=== PATIENT | female | born 1970 | race African-American/Black ===

== ENCOUNTER 2016-07-05 22:40 | Emergency (ER) | payer SELFPAY ==
[~2016-07-05] VITALS: Ht 157.5 cm; Wt 119.3 kg
[~2016-07-05 22:40] MED LIST: AC500T PO; ASPI1TAB22 PO; HYDR-3811 PO; IBP200T PO; IBP800T PO; LISI2.5T PO; LSNP20T PO; NAPR220C11 PO; NF-TORA10 PO
[2016-07-05] MEDS ORDERED: HYDROmorphone 1 MG/ML (DILAUDID) SYRINGE IV PRN (23:20)
[2016-07-05] MEDS ORDERED: HYDROmorphone 1 MG/ML (DILAUDID) SYRINGE IV ONE (23:20)
[2016-07-05] MEDS ORDERED: ONDANSETRON 2 MG/ML (Z0FRAN) 2 ML VIAL IV ONE (23:20)
[2016-07-05] MEDS ORDERED: SODIUM CHLORIDE FLUSH 3 ML SYR IV PRN (23:20)
[2016-07-06] LABS: BASOPHILS % (AUTO) 0 % (0-2); EOSINOPHILS # (AUTO) 0.2 10^3uL; EOSINOPHILS % (AUTO) 3 % (0-4); LYMPHOCYTES # (AUTO) 2.2 X10^3; MEAN CORPUSCULAR VOLUME 82 FL (80-100); MEAN PLATELET VOLUME 9.8 FL (6.0-9.5); MONOCYTES # (AUTO) 0.5 X10^3; MONOCYTES % (AUTO) 7 % (3-11); NEUTROPHILS # (AUTO) 4.2 X10^3; NEUTROPHILS % (AUTO) 59 % (51-67); PLATELET COUNT 289 10^3uL (150-450)
[2016-07-06] MEDS: SODIUM CHLORIDE FLUSH 10 ML SYR IV PRN ×2 (00:01→00:36)
[2016-07-06 00:02] LABS: MEAN CORPUSCULAR HGB CONC 36.8 g/dL (31.0-37.0)
[2016-07-06 00:08] LABS: ANION GAP 13.7 MEQ/L (3-15)
[2016-07-06] MEDS ORDERED: ORPHENADRINE 60 MG/2 ML (NORFLEX) AMP IV ONE (00:30)
[2016-07-06] MEDS ORDERED: ORPHENADRINE 60 MG/2 ML (NORFLEX) AMP ONE (00:34)
[2016-07-06] MEDS ORDERED: CYCL10TA45 PO (00:59)
--- NOTE | 2016-07-06 01:10 | NUR ---
Patient resting with eyes closed sitting up in bed.
[2016-07-06 01:48] VITALS: BP 169/102
--- NOTE | 2016-07-06 01:51 | NUR ---
Along with education provided, recommended to patient that she takes her Lisinopril daily as prescribed as she has admitted that she has not been taking it regularly. She verbalized understanding and reported that she would follow as advised.
--- NOTE | 2016-07-06 08:19 | Diagnostic Imaging Report ---
PROCEDURE: CT head without contrast. TECHNIQUE: Multiple contiguous axial images were obtained through the brain without the use of intravenous contrast. INDICATION: Headache. The ventricles are normal in size, shape, and position. There are no masses or hemorrhages. There are no extra-axial fluid collections. There is membrane thickening in the ethmoid air cells. IMPRESSION: Possible ethmoid sinusitis. No acute intracranial abnormalities. I agree with preliminary interpretation. Dictated by: Dictated on workstation # [id number]
== END 2016-07-06 01:54 | disposition home or self-care (01) ==
LOC: ED 22:41
DX: M54.2 Cervicalgia (principal); R51 Headache; F17.210 Nicotine dependence, cigarettes, uncomplicated
CPT/HCPCS: 36415; 70450; 80048; 85025; 85379; 85610; 96361; 96374; 96375; 99284; J1170; J2360; J2405; J7030; 99283

== ENCOUNTER 2016-07-20 19:27 | Emergency (ER) | payer SELFPAY ==
[~2016-07-20] VITALS: Ht 157.5 cm; Wt 122.6 kg
[~2016-07-20 19:27] MED LIST changes: +CYCL10TA45 PO
[2016-07-20] MEDS ORDERED: HYDROmorphone 1 MG/ML (DILAUDID) SYRINGE IM ONE (20:10)
[2016-07-20] MEDS ORDERED: ORPHENADRINE 60 MG/2 ML (NORFLEX) AMP IM ONE (20:10)
[2016-07-20] MEDS ORDERED: PROMETHAZINE 25 MG/ML (PHENERGAN) 1 ML VIAL IM ONE (20:10)
[2016-07-20] MEDS ORDERED: HYDROmorphone 2 MG/ML (DILAUDID) 1 ML SYRINGE IM ONE (20:10)
[2016-07-20] MEDS ORDERED: HYDROmorphone 2 MG/ML (DILAUDID) 1 ML SYRINGE ONE (20:13)
--- NOTE | 2016-07-20 20:34 | NUR ---
phenergan, dilaudid and norflex were fiven im so no start stop times for IV. pt d/c home before meds effective per dr whitlock ok. pt said she didn't want to be "out of it" when gets home.
[2016-07-20 20:36] VITALS: BP 168/102
== END 2016-07-20 20:37 | disposition home or self-care (01) ==
LOC: ED 19:29
DX: M54.2 Cervicalgia (principal); R51 Headache
CPT/HCPCS: 96372; 99282; J1170; J2360; J2550

== ENCOUNTER 2016-08-01 17:12 | Emergency (ER) | payer SELFPAY ==
[~2016-08-01] VITALS: Ht 157.5 cm; Wt 120.0 kg
[2016-08-01] MEDS ORDERED: ONDANSETRON 4 MG (ZOFRAN) ORAL DISSOLVE TAB PO ONE (17:40)
[2016-08-01] MEDS ORDERED: morphine INJ 10 MG/ML 1 ML VIAL IM ONE (17:40)
[2016-08-01 17:59] VITALS: BP 159/95
== END 2016-08-01 18:03 | disposition home or self-care (01) ==
LOC: ED 17:13
DX: R51 Headache (principal)
CPT/HCPCS: 96372; 99282; J2270

== ENCOUNTER → 2016-08-27 | Outpatient (CLI) | payer OTHER | LOC: RT 08:34 | PROVIDERS: ATTEND Surgery | DX: Z02.71 Encounter for disability determination (principal) | CPT/HCPCS: 94060; 94640; 94729 ==

== ENCOUNTER 2016-09-16 18:52 | Emergency (ER) | payer OTHER ==
[~2016-09-16] VITALS: Ht 157.5 cm; Wt 121.6 kg
[2016-09-16] MEDS ORDERED: ED- ALBUTEROL HFA (VENTOLIN HFA) 8 GM INHALER IH ONE (21:05)
[2016-09-16] MEDS ORDERED: ED- HYDROcodone/ACETAMINOPHEN 5MG/325MG (NORCO) 6 TABLETS/BTL PO ONE (21:05)
[2016-09-16 21:33] VITALS: BP 169/98
== END 2016-09-16 21:41 | disposition home or self-care (01) ==
LOC: ED 18:53
DX: S60.012A Contusion of left thumb without damage to nail, initial encounter (principal); W20.8XXA Other cause of strike by thrown, projected or falling object, initial encounter; Y92.009 Unspecified place in unspecified non-institutional (private) residence as the place of occurrence of the external cause; J44.1 Chronic obstructive pulmonary disease with (acute) exacerbation; F17.210 Nicotine dependence, cigarettes, uncomplicated
CPT/HCPCS: 71020; 99282

== ENCOUNTER 2016-10-18 14:56 | Emergency (ER) | payer SELFPAY ==
[~2016-10-18] VITALS: Ht 152.4 cm; Wt 120.2 kg
--- OUTSIDE RECORDS SUMMARY | 2016-10-18 15:00 | XMS REPORT | Continuity of Care Document ---
Author Author [facility] Address Unknown Phone Unavailable Support Name Relationship Address Phone KAELYN WOLF Anastasiia DO Caregiver [address] [place] [address] ROSALINDA [place] [address] Insurance Providers Payer Name Policy Number Subscriber Name Relationship Disability Determination [id number] Isabel Dubois 16 Self / Same As Patient Advance Directives Directive Response Recorded Date/Time Advanced Directives No 09/16/16 8:21pm Chief Complaint and Reason for Visit Chief Complaint Injury Reason for Visit Finger injury Problems Active Problems Medical Problem Onset Date Status Chronic headache ~07/20/2016 Acute Chronic neck pain ~07/20/2016 Acute DVT (deep venous thrombosis) ~04/16/2016 Resolved Elevated blood pressure reading Unknown Chronic Finger injury Unknown Acute Headache ~08/01/2016 Chronic Left knee sprain ~02/07/2016 Resolved Plantar fasciitis of right foot 10/2015 Resolved Medications Current Home Medications Medication Dose Units Route Directions Days/Qty Instructions Start Date Acetaminophen (Tylenol) 500 Mg 4 Tab ORAL As Needed as needed for Pain 06/19/16 Lisinopril (Zestril) 20 Mg 40 Mg ORAL Daily 60 06/19/16 Past Home Medications Medication Directions Ordered Status Lisinopril 2.5 Mg Tablet, 2.5 Mg Oral Daily 10/14/15 Discontinued Ibuprofen (Motrin) 800 Mg Tablet, 800 Mg Oral As Needed 10/14/15 Discontinued Ketorolac Tromethamine 10 Mg Tab, 10 Mg Oral Three Times A Day 02/07/16 Discontinued Aspirin/Acetaminophen/Caffeine 1 Each Tablet, 1 Each Oral As Needed 06/19/16 Discontinued Naproxen Sodium 220 Mg Capsule, 4 Tab Oral As Needed as needed for Pain 06/19 Discontinued Ibuprofen (Motrin) 200 Mg Tablet, 4 Tab Oral As Needed 06/19/16 Discontinued Hydrocodone Bit/Acetaminophen 1 Each Tablet, 1 Each Oral Every 4HRS for Pain 06/19/16 Discontinued Cyclobenzaprine Hcl 10 Mg Tablet, 10 Mg Oral Three Times A Day as needed for Spasms 07/06/16 Discontinued Social History Query Response Start Date Stop Date Smoking Status Heavy tobacco smoker 10+ Hospital Discharge Instructions No hospital discharge instructions. Plan of Care Discharge Date 09/16/16 9:41pm Disposition 01 HOME OR SELF-CARE Condition at Discharge Stable Instructions/Education Provided Albuterol Hydrocodone and Acetaminophen Chronic Obstructive Pulmonary Disease (COPD), Including Emphysema Contusion (DC) Prescriptions See Medication Section Additional Instructions/Education You have a contusion of your thumb. Your x- rays did not show any significant abnormality according to the ER doctor, but a radiologist will over-read them later and make sure nothing was missed. You are receiving a few pain pills to take over the next day, 1 every 6 hours as needed, and you may also take Motrin 800 mg 3 times a day. For your COPD, you are receiving an albuterol inhaler to take 2 puffs every 6 hours as needed for wheezing. The pain pills mentioned above contain hydrocodone, which will also help with your cough. You should wear a mask to protect against dust inhalation. You should find a doctor to manage further care for your COPD. Some of your test results may not be complete prior to your leaving the Emergency Department. The Emergency Department is not authorized to give test results over the phone. Please contact the doctor's office listed in this packet of information for your final results. Follow up with your primary care physician or return to the Emergency Department for worsening or worrisome symptoms. * Emergency Department phone number: [phone], x [phone] MEDICAL RECORD If you need copies of your X-rays, call [phone]. If you need copies of your medical record, including lab results, a signed authorization for release of records will be required. A telephone call for release of Health Information is not allowed. BILLING Billing can sometimes be confusing and frustrating. To help avoid confusion in the future, please take a moment to acquaint yourself with the billing parties for services. SERVICE BILLING LIBERTARIAN Emergency Room Services [facility] Physician Services [facility] X-rays [facility] Patients will receive bills for services from the appropriate provider. If you have any questions about your [facility] bill, our staff will be happy to assist you. Please call [phone], and ask for the billing department. THANK YOU for choosing [facility] as your emergency care provider! Care Plan and Goals ~~Discharge Care Plan~~ Problem: Contusion, pain to affected area, fall. Goal: Decreased contusion and pain to affected area. Instructions: Apply ice to area for 15-20 minutes every 3-4 hours. Elevate extremity above the level of the heart, if applicable. Splint area with pillow or blanket to any chest/abdomen injuries. Use incentive spirometry as directed. Take at least 10 deep breaths per hour. Take medication(s) as directed. Follow up with regular physician or specialist as directed. Exercise as tolerated or directed by physician. Functional Status No functional status results. Allergies, Adverse Reactions, Alerts Allergen Type Severity Reaction Status Last Updated Sulfamethoxazole Allergy Unknown Active 09/16/16 Trimethoprim Allergy Mild Nausea/Vomiting Active 09/16/16 Immunizations No immunization records. Vital Signs Acute Vital Signs Vital Response Date/Time Temperature (Fahrenheit) 98.6 09/16/2016 9:33pm Pulse 98 bpm 09/16/2016 9:33pm Respirations 18 09/16/2016 9:33pm Height 5 ft 2 in Weight 268 lb Body Mass Index 49.0 kg/m^2 Results No known relevant diagnostic tests, laboratory data and/or discharge summary. Procedures Procedure Status Date Provider(s) EVALUATION OF WHEEZING Completed 08/27/16 AIRWAY INHALATION TREATMENT Completed 08/27/16 CO/MEMBANE DIFFUSE CAPACITY Completed 08/27/16 Encounters Encounter Location Arrival/Admit Date Discharge/Depart Date Attending Provider Departed Emergency Room [facility] 09/16/16 6:53pm 09/16/16 9:41pm KAELYN WOLF DO Registered Clinic [facility] 08/27/16 8:34am CHEYANNE LITTLE MD Recent Diagnosis
[2016-10-18] MEDS ORDERED: ALBU8.5H6 IH (15:30)
[2016-10-18 15:36] VITALS: BP 140/101
== END 2016-10-18 16:20 | disposition home or self-care (01) ==
LOC: ED 14:57
DX: K52.9 Noninfective gastroenteritis and colitis, unspecified (principal); F17.210 Nicotine dependence, cigarettes, uncomplicated
CPT/HCPCS: 99281; 99282

== ENCOUNTER 2016-11-12 21:36 | Emergency (ER) | payer SELFPAY ==
[~2016-11-12] VITALS: Ht 157.5 cm; Wt 117.3 kg
[~2016-11-12 21:36] MED LIST changes: +ALBU8.5H6 IH
--- NOTE | 2016-11-12 21:52 | NUR ---
SUPPOSE TO BE OTHER MEDS BUT D/T NO INSURANCE ISN'T TAKING THEM
[2016-11-12] MEDS ORDERED: KETOROLAC 60 MG/2 ML (TORADOL) VIAL IM ONE ×2 (22:10→22:17)
[2016-11-12] MEDS ORDERED: PROMETHAZINE 25 MG/ML (PHENERGAN) 1 ML VIAL IM ONE (22:10)
[2016-11-12] MEDS ORDERED: ORPHENADRINE 60 MG/2 ML (NORFLEX) AMP IM ONE (22:10)
[2016-11-12] MEDS ORDERED: PROMETHAZINE 25 MG/ML (PHENERGAN) 1 ML VIAL ONE ×2 (22:16→22:17)
[2016-11-12] MEDS ORDERED: ORPHENADRINE 60 MG/2 ML (NORFLEX) AMP ONE (22:17)
--- NOTE | 2016-11-12 22:45 | NUR ---
ALL MEDS WERE GIVEN IM SO NO IV START / STOP TIMES
[2016-11-12 23:18] VITALS: BP 132/76
== END 2016-11-12 23:18 | disposition home or self-care (01) ==
LOC: ED 21:37
DX: G43.909 Migraine, unspecified, not intractable, without status migrainosus (principal); F17.210 Nicotine dependence, cigarettes, uncomplicated
CPT/HCPCS: 96372; 99283; J1885; J2360; J2550; 99282

== ENCOUNTER 2016-11-17 09:28 | Emergency (ER) | payer SELFPAY ==
[~2016-11-17] VITALS: Ht 157.5 cm; Wt 118.0 kg
--- OUTSIDE RECORDS SUMMARY | 2016-11-17 09:34 | XMS REPORT | Continuity Of Care Document ---
Author Author [facility] Organization [facility] Address [address] [place] [address] Phone Care Team Providers Care Logistics Analytics Manager Name Role Phone ADRIENNE VELASCO MD CP JAJA HUNTER, R AT [phone] TRANG HUNTER, C AD Results Lab Results Visit/Account #[id number] (February 26, 2014 2:01pm - February 27, 2014 12:38pm) Test Result Date/Time POCGL POCGL(70-105 MG/DL) 307 MG/DL February 26, 2014 11:55pm 182 MG/DL February 27, 2014 7:05am 62213-2: COMPLETE BLOOD COUNT WITH DIFF WHITE BLOOD COUNT(4.0-11.0 10E3/UL) 3.2 10E3/UL February 26, 2014 2:29pm RED BLOOD COUNT(4.00-5.20 10E6/UL) 4.70 10E6/UL February 26, 2014 2:29pm HEMOGLOBIN(12.0-16.0 G/DL) 14.6 G/DL February 26, 2014 2:29pm HEMATOCRIT(36.0-46.0 %) 40.2 % February 26, 2014 2:29pm 94604-8: MEAN CORPUSCULAR VOLUME(82.0-100.0 FL) 85.5 FL February 26, 2014 2:29pm 49377-8: MEAN CORPUSCULAR HEMOGLOBIN(26.0-34.0 PG) 31.1 PG February 26, 2014 2:29pm MEAN CORPUSCULAR HGB CONC(31.5-36.5 G/DL) 36.3 G/DL February 26, 2014 2:29pm RED CELL DISTRIBUTION WIDTH(11.5-14.5 %) 12.5 % February 26, 2014 2:29pm 777-3: PLATELET COUNT(150-450 10E3/UL) 262 10E3/UL February 26, 2014 2:29pm MEAN PLATELET VOLUME(8.2-12.4 FL) 9.8 FL February 26, 2014 2:29pm 770-8: NEUTROPHILS % (AUTO)(40-70 %) 45 % February 26, 2014 2:29pm LYMPHOCYTES % (AUTO)(15-45 %) 39 % February 26, 2014 2:29pm 5905-5: MONOCYTES % (AUTO)(2-10 %) 6 % February 26, 2014 2:29pm 713-8: EOSINOPHILS % (AUTO)(0-6 %) 8 % February 26, 2014 2:29pm 706-2: BASOPHILS % (AUTO)(0-1 %) 1 % February 26, 2014 2:29pm 65481-5: IMMATURE GRANS % (AUTO)(0-0 %) 0 % February 26, 2014 2:29pm NUCLEATED RBCS (AUTO)(0-0 %) 0 % February 26, 2014 2:29pm 751-8: NEUTROPHILS # (AUTO)(2.5-7.5 10E3/UL) 1.5 10E3/UL February 26, 2014 2:29pm 69079-2: LYMPHOCYTES # (AUTO)(1.0-4.0 10E3/UL) 1.2 10E3/UL February 26, 2014 2:29pm 742-7: MONOCYTES # (AUTO)(0.2-0.8 10E3/UL) 0.2 10E3/UL February 26, 2014 2:29pm 711-2: EOSINOPHILS # (AUTO)(0.0-0.4 10E3/UL) 0.3 10E3/UL February 26, 2014 2:29pm 704-7: BASOPHILS # (AUTO)(0.0-0.2 10E3/UL) 0.0 10E3/UL February 26, 2014 2:29pm IMMATURE GRANS # (AUTO)(0.0-0.0 10E3/UL) 0.0 10E3/UL February 26, 2014 2:29pm DIFF TYPE AUTOMATED February 26, 2014 2:29pm 48741-0: COMPLETE BLOOD COUNT WHITE BLOOD COUNT(4.0-11.0 10E3/UL) 4.5 10E3/UL February 27, 2014 2:16am RED BLOOD COUNT(4.00-5.20 10E6/UL) 4.47 10E6/UL February 27, 2014 2:16am HEMOGLOBIN(12.0-16.0 G/DL) 14.0 G/DL February 27, 2014 2:16am HEMATOCRIT(36.0-46.0 %) 38.6 % February 27, 2014 2:16am 02706-4: MEAN CORPUSCULAR VOLUME(82.0-100.0 FL) 86.4 FL February 27, 2014 2:16am 35963-4: MEAN CORPUSCULAR HEMOGLOBIN(26.0-34.0 PG) 31.3 PG February 27, 2014 2:16am MEAN CORPUSCULAR HGB CONC(31.5-36.5 G/DL) 36.3 G/DL February 27, 2014 2:16am RED CELL DISTRIBUTION WIDTH(11.5-14.5 %) 12.4 % February 27, 2014 2:16am 777-3: PLATELET COUNT(150-450 10E3/UL) 221 10E3/UL February 27, 2014 2:16am MEAN PLATELET VOLUME(8.2-12.4 FL) 9.6 FL February 27, 2014 2:16am NUCLEATED RBCS (AUTO)(0-0 %) 0 % February 27, 2014 2:16am 67811-5: PROTHROMBIN TIME WITH INR PROTHROMBIN TIME(12.1-14.0 SEC) 13.5 SEC February 26, 2014 2:36pm 58322-2: INR 1.05 Result Comments: INR reference interval applies to patients on anticoagulant therapy. Suggested INR therapeutic range for oral anticoagulant therapy: (Stabilized anticoagulated patients) Routine Therapy: 2.0 to 3.0 Recurrent Myocardial Infarction: 2.5 to 3.5 Mechanical Prosthetic Valves: 2.5 to 3.5 February 26, 2014 2:36pm BASIC METABOLIC PANEL 07267-1: GLUCOSE(70-110 MG/DL) 124 MG/DL February 26, 2014 2:46pm 205 MG/DL February 27, 2014 2:28am BLOOD UREA NITROGEN(6-20 MG/DL) 11 MG/DL February 26, 2014 2:46pm 15 MG/DL February 27, 2014 2:28am 92372-2: CREATININE(0.50-1.20 MG/DL) 1.26 MG/DL February 26, 2014 2:46pm 1.11 MG/DL February 27, 2014 2:28am 22423-6: EST GLOMERULAR FILTRATION RATE(Greater than or equal to 60) 46 Result Comments: If the patient is of -Sudanese descent/extraction multiply the eGFR value by 1.212 to obtain the actual eGFR. >=60 mg/dL Normal 30-59 mg/dL Moderate Kidney Disease 15-29 mg/dL Severe Kidney Disease <15 mg/dL Kidney Failure February 26, 2014 2:46pm 53 Result Comments: If the patient is of -Sudanese descent/extraction multiply the eGFR value by 1.212 to obtain the actual eGFR. >=60 mg/dL Normal 30-59 mg/dL Moderate Kidney Disease 15-29 mg/dL Severe Kidney Disease <15 mg/dL Kidney Failure February 27, 2014 2:28am BUN CREATININE RATIO(10.0-20.0 RATIO) 9.0 RATIO February 26, 2014 2:46pm 14.0 RATIO February 27, 2014 2:28am 06777-7: SODIUM(135-145 MMOL/L) 137 MMOL/L February 26, 2014 2:46pm 134 MMOL/L February 27, 2014 2:28am 78426-3: POTASSIUM(3.6-5.0 MMOL/L) 3.8 MMOL/L February 26, 2014 2:47pm 4.1 MMOL/L February 27, 2014 2:28am 74959-8: CHLORIDE(101-111 MMOL/L) 106 MMOL/L February 26, 2014 2:47pm 105 MMOL/L February 27, 2014 2:28am 8-9: CO2(21-31 MMOL/L) 26.0 MMOL/L February 26, 2014 2:47pm 22.0 MMOL/L February 27, 2014 2:28am 90266-6: ANION GAP(8-18) 9 February 26, 2014 2:47pm 11 February 27, 2014 2:28am OSMO CALCULATED(270.0-290.0) 274.6 February 26, 2014 2:47pm 275.0 February 27, 2014 2:28am CALCIUM(8.5-10.5 MG/DL) 8.8 MG/DL February 26, 2014 2:47pm 9.0 MG/DL February 27, 2014 2:28am TOTAL CPK TOTAL CPK(22-269 U/L) 95 U/L February 26, 2014 8:39pm 85 U/L February 27, 2014 2:40am CPK MB CPK MB(0.6-6.3 NG/ML) 0.9 NG/ML February 26, 2014 8:39pm 0.9 NG/ML February 27, 2014 2:40am 65601-0: [place] I 23897-9: CARDIAC TROPONIN I(0.01-0.04 NG/ML) 0.01 NG/ML Result Comments: REFERENCE RANGES: NEGATIVE < 0.04 NG/ML POSSIBLE MYCARDIAL INVOLVEMENT >/=0.04 NG/ML INTERPRET TROPONIN I RESULT IN LIGHT OF THE TOTAL CLINICAL PRESENTATION INCLUDING CLINICAL HISTORY. ANY CONDITION RESULTING IN MYOCARDIAL INJURY CAN POTENTIALLY ELEVATE TROPONIN I LEVELS ABOVE EXPECTED NORMAL RANGES. NOTE NEW REFERENCE RANGE February 26, 2014 3:00pm Less than 0.01 NG/ML Result Comments: REFERENCE RANGES: NEGATIVE < 0.04 NG/ML POSSIBLE MYCARDIAL INVOLVEMENT >/=0.04 NG/ML INTERPRET TROPONIN I RESULT IN LIGHT OF THE TOTAL CLINICAL PRESENTATION INCLUDING CLINICAL HISTORY. ANY CONDITION RESULTING IN MYOCARDIAL INJURY CAN POTENTIALLY ELEVATE TROPONIN I LEVELS ABOVE EXPECTED NORMAL RANGES. NOTE NEW REFERENCE RANGE February 26, 2014 8:39pm Less than 0.01 NG/ML Result Comments: REFERENCE RANGES: NEGATIVE < 0.04 NG/ML POSSIBLE MYCARDIAL INVOLVEMENT >/=0.04 NG/ML INTERPRET TROPONIN I RESULT IN LIGHT OF THE TOTAL CLINICAL PRESENTATION INCLUDING CLINICAL HISTORY. ANY CONDITION RESULTING IN MYOCARDIAL INJURY CAN POTENTIALLY ELEVATE TROPONIN I LEVELS ABOVE EXPECTED NORMAL RANGES. NOTE NEW REFERENCE RANGE February 27, 2014 2:40am 88624-1: BETA NATRIURETIC PEPTIDE 63969-6: BETA NATRIURETIC PEPTIDE(0-100 PG/ML) 42 PG/ML February 26, 2014 3:17pm Microbiology Results Visit/Account #[id number] (February 26, 2014 2:01pm - February 27, 2014 12:38pm) Procedure Result 6460-0: SPUTUM CULTURE 6460-0: SPUTUM CULTURE Result Instance On February 28, 2014 8:33am Source: SPUTUM Organism: [id number] ([id number]) ROUTINE RESPIRATORY OSCAR 86021-8: MRSA SCREEN FOR INFEC CONTROL 65398-1: MRSA SCREEN FOR INFEC CONTROL Result Instance On February 28, 2014 12:04pm Source: NARE Special Result Comments: No growth 648-6: SPUTUM GRAM STAIN 648-6: SPUTUM GRAM STAIN Result Instance On February 27, 2014 10:03am Source: SPUTUM Result Prompts: SPUTUM GRADE GRADE 6 (ADEQUATE): <25 WBC/LPF; <10 EPITHELIAL CELLS/LPF WBC/HPF 0-5 BACTERIA SEEN 1+ MIXED OSCAR Allergies and Adverse Reactions Allergies and Adverse Reactions Patient Unit Number: [id number] Agent Type Reaction Severity Status Date NO KNOWN ALLERGIES Drug Allergy Unknown Mild Active Unknown Date Problem List Problem List Visit/Account #[id number] (February 26, 2014 2:01pm - February 27, 2014 12:38pm) Acute Problems: Code/Condition Comments Documented Start Date Documented Resolved Date Code (s) COPD exacerbation ICD10: J44.1 Obstructive chronic bronchitis with exacerbation ICD9: 491.21 Obstructive chronic bronchitis with exacerbation SNOMED: 737530452 Obstructive chronic bronchitis with exacerbation COPD exacerbation ICD10: J44.1 Obstructive chronic bronchitis with exacerbation ICD9: 491.21 Obstructive chronic bronchitis with exacerbation SNOMED: 340990701 Obstructive chronic bronchitis with exacerbation Chest pain ICD10: R07.9 Chest pain ICD9: 786.50 Chest pain SNOMED: 28469069 Chest pain Plan of Care Plan Of Care Visit/Account #[id number] (February 26, 2014 2:01pm - February 27, 2014 12:38pm) Instructions/Comments: Chronic Obstructive Pulmonary Disease Vital Signs Vital Signs Visit/Account #[id number] (February 26, 2014 2:01pm - February 27, 2014 12:38pm) Label First Result Last Result 2710-2: O2% 95 % February 26, 2014 5:57pm 96 % February 27, 2014 9:29am 3141-9: Weight Measured 236 lbs February 26, 2014 1:58pm 107.865492 kg February 26, 2014 1:58pm 8310-5: Body Temperature 98.3 degF February 26, 2014 1:58pm 8310-5: Celsius Body Temperature 36.81395 Mandy February 26, 2014 5:57pm 35.06927 Mandy February 27, 2014 9:29am 8310-5: [facility] Body Temperature 96.4 [degF] February 27, 2014 9:29am 8480-6: BP Systolic 131/ mmHg February 26, 2014 1:58pm 123/77 mm[Hg] February 27, 2014 9:29am 8867-4: Heart Rate 86 /min February 26, 2014 1:58pm 71 /min February 27, 2014 9:29am 9279-1: Respiratory Rate 24 /min February 26, 2014 1:58pm 16 /min February 27, 2014 9:29am Unmapped Query Mnemonic (RESP.SAT) Saturation 97 % February 26, 2014 1:58pm 97 % February 26, 2014 1:58pm Unmapped Query Mnemonic (VS.BMI) Body Mass Index (BMI) 46 February 26, 2014 1:58pm 46 February 26, 2014 1:58pm Functional Status Functional Status No Functional Status Data Medications Home Medications Visit/Account #[id number] (February 26, 2014 2:01pm - February 27, 2014 12:38pm) Medication Route Sig/Schedule Precondition/Indication Comments/ Instructions Codes GLUCOPHAGE(MetFORMin HCL) 500 MG TAB ORAL BIDWM: WITH BREAKFAST & SUPPER GLUCOPHAGE (MetFORMin HCL) RxNorm: U411365 GLUCOPHAGE (MetFORMin HCL) RxNorm: P876250 GLUCOPHAGE (MetFORMin HCL) NDC: 87575345908 Lisinopril(LISINOPRIL) 20 MG TABLET ORAL DAILY: DAILY Lisinopril (LISINOPRIL) RxNorm: F912762 Lisinopril (LISINOPRIL) NDC: 38463351822 VENTOLIN 0.5% NEBS (use for MED REC)(ALBUTEROL SULF) 2.5 MG/0.5 ML INHALER INHALED 4XD: 4 TIMES DAILY VENTOLIN 0.5% NEBS (use for MED REC) (ALBUTEROL SULF) RxNorm: Z254001 VENTOLIN 0.5% NEBS (use for MED REC) (ALBUTEROL SULF) NDC: 51538728138 LEVAQUIN(LEVOFLOXACIN) 500 MG TAB ORAL DAILY@10 LEVAQUIN (LEVOFLOXACIN) RxNorm: J045590 LEVAQUIN (LEVOFLOXACIN) RxNorm: S803230 LEVAQUIN (LEVOFLOXACIN) NDC: 57112026886 ATROVENT 0.02% NEB(IPRATROPIUM BROMIDE) 0.5 MG/2.5 ML SOLUTION INHALED Q6H ATROVENT 0.02% NEB (IPRATROPIUM BROMIDE) RxNorm: H342685 ATROVENT 0.02% NEB (IPRATROPIUM BROMIDE) NDC: 93091061566 VENTOLIN 0.5% NEBS (use for MED REC)(ALBUTEROL SULF) 2.5 MG/0.5 ML INHALER INHALED Q6H VENTOLIN 0.5% NEBS (use for MED REC) (ALBUTEROL SULF) RxNorm: W395925 VENTOLIN 0.5% NEBS (use for MED REC) (ALBUTEROL SULF) NDC: 81824794443 VENTOLIN 0.5% NEBS (use for MED REC)(ALBUTEROL SULF) 2.5 MG/0.5 ML INHALER INHALED Q2H VENTOLIN 0.5% NEBS (use for MED REC) (ALBUTEROL SULF) RxNorm: A887375 VENTOLIN 0.5% NEBS (use for MED REC) (ALBUTEROL SULF) NDC: 54853528656 Aspirin Chew(ASPIRIN) 81 MG TAB ORAL DAILY: DAILY Aspirin Chew (ASPIRIN) NDC: 28128982206 DELTASONE(PredniSONE) 20 MG TAB ORAL DAILYB: DAILY AT [facility] Rx Instructions: Take 60 mg daily for 3 days then, take 40 mg daily for 3 days then, take 20 mg daily for 3 days then, take 10 mg daily until gone. DELTASONE (PredniSONE) RxNorm: D173579 DELTASONE (PredniSONE) NDC: 69940577394 TUSSIN COUGH & COLD CF LIQUID(GUAIFENESIN/D-METHORPHAN HB/PE) 118 ML LIQUID ORAL TID: 3 TIMES A DAY TUSSIN COUGH & COLD CF LIQUID (GUAIFENESIN/D-METHORPHAN HB/PE) RxNorm: D6466171 TUSSIN COUGH & COLD CF LIQUID (GUAIFENESIN/D-METHORPHAN HB/PE) NDC: 88232476557 Inpatient/Ordered Medications Visit/Account #[id number] (February 26, 2014 2:01pm - February 27, 2014 12:38pm) Medication Route Sig/Schedule Precondition/Indication Comments/ Instructions Codes VENTOLIN 0.5% NEB(ALBUTEROL SULF) 2.5 MG/0.5 ML INHALER Total Dose: 2.5 MG INHALED NOW: NOW Rx Order Comments: Order placed as verified: Dose Warnings differ from warehouse order picker Dose Warnings differ from warehouse order picker VENTOLIN 0.5% NEB (ALBUTEROL SULF) RxNorm: O740079 VENTOLIN 0.5% NEB (ALBUTEROL SULF) NDC: 62945638467 VENTOLIN 0.5% NEB(ALBUTEROL SULF) 2.5 MG/0.5 ML INHALER Total Dose: 5 ML INHALED NOW: NOW Rx Order Comments: Order placed as verified: Allergies/Duplicates/Interactions differ from warehouse order picker Dose Warnings differ from warehouse order picker VENTOLIN 0.5% NEB (ALBUTEROL SULF) RxNorm: I519083 VENTOLIN 0.5% NEB (ALBUTEROL SULF) NDC: 78096380026 Solu-MEDROL INJ(MethylPREDNISolone SOD SUCC) 125 MG/2 ML INJECTION Total Dose: 125 MG INTRAVEN NOW: NOW Rx Order Comments: Order placed as verified: Allergies/Duplicates/Interactions differ from warehouse order picker Dose Warnings differ from warehouse order picker Solu-MEDROL INJ (MethylPREDNISolone SOD SUCC) RxNorm: V890910 Solu-MEDROL INJ (MethylPREDNISolone SOD SUCC) RxNorm: Y297350 Solu-MEDROL INJ (MethylPREDNISolone SOD SUCC) NDC: 40875295098 ASPIRIN 324 MG TAB Total Dose: 324 MG ORAL NOW: NOW Rx Order Comments: Order placed as verified: Allergies/Duplicates/Interactions differ from warehouse order picker Dose Warnings differ from warehouse order picker Special Dose Instructions: CHEW (ASPIRIN) RxNorm: R326401 (ASPIRIN) NDC: 94701772178 VENTOLIN 0.5% NEB(ALBUTEROL SULF) 2.5 MG/0.5 ML INHALER Total Dose: 7.5 ML INHALED NOW: NOW Rx Order Comments: Order placed as verified: Allergies/Duplicates/Interactions differ from warehouse order picker Dose Warnings differ from warehouse order picker VENTOLIN 0.5% NEB (ALBUTEROL SULF) RxNorm: Q767461 VENTOLIN 0.5% NEB (ALBUTEROL SULF) NDC: 98068345601 LEVAQUIN(LEVOFLOXACIN) 500 MG TAB Total Dose: 500 MG ORAL DAILY@10 Label Comments: Take 2 hrs before or after antacids, sucralfate, metal cations(iron), or multi-vitamins LEVAQUIN (LEVOFLOXACIN) RxNorm: R198983 LEVAQUIN (LEVOFLOXACIN) RxNorm: E629558 LEVAQUIN (LEVOFLOXACIN) NDC: 04739745287 VENTOLIN 0.5% NEB(ALBUTEROL SULF) 2.5 MG/0.5 ML INHALER Total Dose: 2.5 MG INHALED RT4XD: 4 TIMES DAILY VENTOLIN 0.5% NEB (ALBUTEROL SULF) RxNorm: M505381 VENTOLIN 0.5% NEB (ALBUTEROL SULF) NDC: 77349468975 SPIRIVA(TIOTROPIUM) 18 MCG/CAP CAP Total Dose: 18 MCG INHALED RTDAILY: DAILY Label Comments: inhale contents of capsule with handihaler SPIRIVA (TIOTROPIUM) RxNorm: B626650 SPIRIVA (TIOTROPIUM) RxNorm: L746030 SPIRIVA (TIOTROPIUM) NDC: 54293589186 DELTASONE(PredniSONE) 20 MG TAB Total Dose: 60 MG ORAL DAILYB: DAILY AT [facility] Label Comments: take with food or milk DELTASONE (PredniSONE) RxNorm: E844649 DELTASONE (PredniSONE) NDC: 90147217229 LEVAQUIN(LEVOFLOXACIN) 500 MG TAB Total Dose: 500 MG ORAL NOW: NOW Label Comments: Take 2 hrs before or after antacids, sucralfate, metal cations(iron), or multi-vitamins LEVAQUIN (LEVOFLOXACIN) RxNorm: P829859 LEVAQUIN (LEVOFLOXACIN) RxNorm: X676942 LEVAQUIN (LEVOFLOXACIN) NDC: 43899324799 LOVENOX(ENOXAPARIN) 40 MG/0.4 ML INJECTION Total Dose: 40 MG SUBCUTANEOUSLY DAILY@07 Label Comments: INJECT SC INTO ABDOMINAL WALL ONLY. LOVENOX (ENOXAPARIN) RxNorm: Z184418 LOVENOX (ENOXAPARIN) RxNorm: A843808 LOVENOX (ENOXAPARIN) NDC: 49137385817 Discharge Medications Visit/Account #[id number] (February 26, 2014 2:01pm - February 27, 2014 12:38pm) Medication Route Sig/Schedule Precondition/Indication Comments/ Instructions Codes GLUCOPHAGE(MetFORMin HCL) 500 MG TAB ORAL BIDWM: WITH BREAKFAST & SUPPER GLUCOPHAGE (MetFORMin HCL) RxNorm: J726074 GLUCOPHAGE (MetFORMin HCL) RxNorm: X297916 GLUCOPHAGE (MetFORMin HCL) NDC: 27255468731 Lisinopril(LISINOPRIL) 20 MG TABLET ORAL DAILY: DAILY Lisinopril (LISINOPRIL) RxNorm: Q479996 Lisinopril (LISINOPRIL) NDC: 83896345150 VENTOLIN 0.5% NEBS (use for MED REC)(ALBUTEROL SULF) 2.5 MG/0.5 ML INHALER INHALED 4XD: 4 TIMES DAILY VENTOLIN 0.5% NEBS (use for MED REC) (ALBUTEROL SULF) RxNorm: Q300962 VENTOLIN 0.5% NEBS (use for MED REC) (ALBUTEROL SULF) NDC: 95235478759 VENTOLIN 0.5% NEBS (use for MED REC)(ALBUTEROL SULF) 2.5 MG/0.5 ML INHALER INHALED Q2H VENTOLIN 0.5% NEBS (use for MED REC) (ALBUTEROL SULF) RxNorm: S877755 VENTOLIN 0.5% NEBS (use for MED REC) (ALBUTEROL SULF) NDC: 29226038554 Aspirin Chew(ASPIRIN) 81 MG TAB ORAL DAILY: DAILY Aspirin Chew (ASPIRIN) NDC: 53767611402 SPIRIVA(TIOTROPIUM) 18 MCG CAP INHALED RTDAILY: DAILY SPIRIVA (TIOTROPIUM) RxNorm: K845777 SPIRIVA (TIOTROPIUM) RxNorm: R932350 SPIRIVA (TIOTROPIUM) NDC: 44001897459 DELTASONE(PredniSONE) 20 MG TAB ORAL DIRECTED: DIRECTED Rx Instructions: Take 60mg x 3 days then take 40mg x 3 days then take 20 mg x 3 days then take 10 mg until gone. DELTASONE (PredniSONE) RxNorm: S426536 DELTASONE (PredniSONE) NDC: 50184685952 Motrin(IBUPROFEN) 400 MG TAB ORAL Q4H Motrin (IBUPROFEN) NDC: 23812702703 History Of Encounters Encounters Visit/Account #[id number] (February 26, 2014 2:01pm - February 27, 2014 12:38pm) Account Status Physican Of Record Reason For Visit Visit Diagnosis Start Date/Time Stop Date/Time TRE VELASCO MD COPD EXACERBATION 493.22: CHRONIC OBSTRUCTIVE ASTHMA, W (ACUTE) EXACERBATION ICD9 Feb 26, 2014 2:01pm Feb 26, 2014 3:45pm Marguerite WILKINSON MD COPD EXACERBATION 493.22: CHRONIC OBSTRUCTIVE ASTHMA, W (ACUTE) EXACERBATION ICD9 Feb 26, 2014 3:45pm Feb 27, 2014 12:38pm History of Procedures Procedure List No Procedures Discharge Instructions Discharge Instructions Visit/Account #[id number] (February 26, 2014 2:01pm - February 27, 2014 12:38pm) Department: MEDICAL RECORDS [ Report: GEN DC SUMMARY ] Dictated By: CARITO HARDING MD Signed By: CARITO HARDING MD [address] [address] Name: REGINALD DUBOIS UNIT/MR#: [id number] : 1970 Age: 43 Sex: F Report#: [id number] RUPAL WILKINSON MD Adm Date: 02/26/14 PCP: [facility] Date: 02/27 Dictated By: CARITO HARDING MD - (PGY3) ~GEN DC SUMMARY~ Signed DC SUMMARY Date of Service: Feb 28, 2014 Time of Service: 11:30 Note: Date of Admit: 02/26/14 Date of Discharge: 02/27/14 Admission Diagnoses: 1. Chronic obstructive pulmonary disease exacerbation. 2. Chest pain. 3. Diabetes, type 2. 4. Tobacco use disorder. 5. Hyperlipidemia. 6. Obstructive sleep apnea. 7. Slightly elevated creatinine Discharge Diagnoses: 1. Chronic obstructive pulmonary disease exacerbation: improved 2. Chest pain ruled out troponins negative x 3 sets 3. Diabetes, type 2. 4. Tobacco use disorder. 5. Hyperlipidemia. 6. Obstructive sleep apnea. 7. Slightly elevated creatinine Disposition:~ home Condition:~ good Consultations: none Procedures: CXR on 02/26, unremarkable chest. CXR on 02/27 no changes, unremarkable chest Admission HPI: The patient is a 43-year-old female, who presents with increased shortness of breath since Thursday and back pain with a deep inspiration.~ She states that she typically have shortness of breath, but has just increased over the last several days.~ She takes albuterol inhaler every 4-5 hours, however, she has been recurring every 2 hours and has been taking her Spiriva daily.~ She does not use oxygen at home.~ She does state that she has had some chills, but no fever.~ Denies any nausea or vomiting.~ States that she has not had any sputum production with this acute exacerbation.~ She currently lives at [facility] and staff worker said that they can hear loose fluids in her lungs when she sleeps.~ She was just recently seen at [facility] for cellulitis infection and she was started on Bactrim, she is currently on day #3 of Bactrim.~ She states that she has increased shortness of breath on exertion, but this is normal, it is just worse recently.~ She states the pain is localized to the substernal region and inner shoulder blades.~ Denies any upper respiratory infection.~ Has a history of DVT in the left lower extremity and was on Coumadin for 3 years, but has not been on Coumadin for several years.~ Has a history of bilateral edema especially when she is up on her feet a lot.~ 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 ~ Emergency department workup:~ The patient was seen in the emergency department and given an hour of continuous albuterol and IV Solu-Medrol and did improve significantly.~ She never did require any oxygen and kept up very well on room air.~ Her cardiac enzymes within normal limits.~ All other labs were generally normal except with a slightly elevated creatinine of 1.26.~ Because of her multiple risk factors and recent history of chest pain, it was decided to admit for COPD exacerbation and to rule out [place]. Hospital Course: Admitted 02/26 for chest pain and COPD exacerbation. CP resolved. Troponins normal. COPD improved sats 98 on RA. Ok for discharge home today with follow up at completion of 5 day course of levaquin/prednisone taper. Discharge Physical Exam: General: obese Well appearing, well nourished in no distress.~ Oriented , normal mood and affect. Skin: good turgor, no rash or~ prominent lesions Head: normocephalic, atraumatic Heart: normal rate and regular rhythm; no murmur, rub or gallop Lungs: clear to auscultation Abdomen: bowel sounds nl, no tenderness, organomegaly, masses,~ or hernia Extremities: no amputations or deformities, cyanosis, edema or varicosities, peripheral pulses intact Discharge Medications: per [facility] Discharge Routine Discharge Diet: ada 2000 Discharge Activity: as tolerated Leonardo Information for [facility] To Know or Follow: 1. follow up in 5-10 days after completion of Levaquin to f/u copd. 2. Given chest pain, it would be prudent to have scheduled for a stress test as an outpatient. Social Service Needs: none Problem List Problems: (1) Chest pain (2) COPD exacerbation (3) DM type 2 (diabetes mellitus, type 2) (4) Hyperlipemia Medications/Allergies MEDICATIONS Scheduled ALBUTEROL SULF 0.5% NEBS (use for MED REC) (VENTOLIN 0.5% NEBS (use for MED REC) ) 2.5 MG INH 4XD (Reported) Aspirin (Aspirin Chew) 81 MG PO DAILY Lisinopril (Lisinopril) 20 MG PO DAILY (Reported) METFORMin HCL (Glucophage) 500 MG PO BIDWM (Reported) PREdniSONE (Deltasone) 60 MG PO DIRECTED Tiotropium (Spiriva) 18 MCG INH RTDAILY Scheduled PRN ALBUTEROL SULF 0.5% NEBS (use for MED REC) (VENTOLIN 0.5% NEBS (use for MED REC) ) 2.5 MG INH Q2H PRN PRN SHORTNESS OF BREATH/WHEEZING Ibuprofen (Motrin) 400 MG PO Q4H PRN PRN PAIN Discontinued Medications ALBUTEROL SULF 0.5% NEBS (use for MED REC) (VENTOLIN 0.5% NEBS (use for MED REC) ) 2.5 MG INH Q6H Discontinued Reason: Stopped Guaifenesin/D-Methorphan Hb/Pe (Tussin Cough & Cold Cf Liquid) 118 ML PO TID Discontinued Reason: Stopped Ipratropium [place] 0.02% Neb (Atrovent 0.02% Neb) 0.5 MG INH Q6H Discontinued Reason: Stopped Levofloxacin (Levaquin) 500 MG PO DAILY@10 Discontinued Reason: Stopped PREdniSONE (Deltasone) 60 MG PO DAILYB Discontinued Reason: Stopped ALLERGIES Allergies: Coded Allergies: NO KNOWN ALLERGIES (Verified , 09/29/08) CARITO HARDING MD - ([id number]) Feb 28, 2014 11:31 Signed By: CARITO HARDING MD 02/28/14 1131 RUPAL WILKINSON MD 03/02/14 1219 Social History Social History Visit/Account #[id number] (February 26, 2014 2:01pm - February 27, 2014 12:38pm) Smoking Status Current every day smoker February 26, 2014 2:05pm Immunizations Immunizations Patient Unit Number: [id number] Immunizations No Immunizations Administered
[2016-11-17] MEDS: LIDOCAINE 1% (XYLOCAINE) 20 ML VIAL INJ ONE (10:27)
[2016-11-17] MEDS: BACITRACIN OINTMENT 0.9 GM PACKET TOP ONE (10:27)
[2016-11-17] MEDS: TETANUS, DIPTHERIA, PERTUSSIS (ADACELL) VACCINE 0.5 ML VIAL IM ONE (10:27)
[2016-11-17] MEDS ORDERED: TRM50T PO (11:48)
[2016-11-17] MEDS ORDERED: CEPH500C PO (11:48)
[2016-11-17 12:10] VITALS: BP 134/91
--- NOTE | 2016-11-17 12:23 | Diagnostic Imaging Report ---
INDICATION: Foreign body in the foot. 3 views of the left foot show no fracture, dislocation, or radiopaque foreign objects. IMPRESSION: Negative left foot. Dictated by: Dictated on workstation # [id number]
== END 2016-11-17 12:11 | disposition home or self-care (01) ==
LOC: ED 09:29
DX: S91.332A Puncture wound without foreign body, left foot, initial encounter (principal); W22.09XA Striking against other stationary object, initial encounter
CPT/HCPCS: 90471; 90715; 99282; 99283

== ENCOUNTER 2016-11-22 19:40 | Emergency (ER) | payer SELFPAY ==
[~2016-11-22] VITALS: Ht 152.4 cm; Wt 119.0 kg
[~2016-11-22 19:40] MED LIST changes: +CEPH500C PO; +TRM50T PO
--- NOTE | 2016-11-22 19:50 | NUR ---
Pt presents to ER with c/o left foot pain from splinter 5 days ago. Was seen in ER at that time and placed on antibiotics and Tramadol. Pt rates pain at 8/10. Pt admitted to ER room 7 via wheelchair from waiting area. Pt thinks her foot is infected. Does not like the Tramadol, states it causes her headaches.
[2016-11-22] MEDS ORDERED: CLINDAMYCIN 150 MG (CLEOCIN) CAP PO ONE (20:20)
[2016-11-22] MEDS ORDERED: ACET1TAB43 PO (20:26)
[2016-11-22] MEDS ORDERED: CLIN-79 PO (20:26)
--- NOTE | 2016-11-22 20:40 | NUR ---
Pt given dose of Clindamycin, took without difficulty. Dismissed pt to home with instructions and prescription. Pt stated her understanding. No other concerns or questions. Pt left via wheelchair to V.
[2016-11-22 20:43] VITALS: BP 147/110
== END 2016-11-22 20:40 | disposition home or self-care (01) ==
LOC: ED 19:43
DX: L03.116 Cellulitis of left lower limb (principal); E11.9 Type 2 diabetes mellitus without complications
CPT/HCPCS: 99282